=== PATIENT | female | born 1985 | race Caucasian/White ===

== ENCOUNTER → 2020-06-17 | Outpatient (CLI) | payer OTHER ==
[~2020-06-17] MED LIST: OMEP-218 PO; PYRI60TA2 PO
== END ==
LOC: M LABSMTC 12:02
PROVIDERS: ATTEND Anesthesiology
DX: Z01.812 Encounter for preprocedural laboratory examination (principal); Z11.52 Encounter for screening for COVID-19

== ENCOUNTER → 2020-08-28 | Outpatient (CLI) | payer OTHER | LOC: M LABSMTC 10:25 | PROVIDERS: ATTEND Anesthesiology | DX: Z01.812 Encounter for preprocedural laboratory examination (principal) ==

== ENCOUNTER 2020-09-02 07:52 | Observation (INO) | payer OTHER ==
[~2020-09-02] VITALS: Ht 160 cm; Wt 83.0 kg
[~2020-09-02 07:52] MED LIST changes: +HEPARIN SOD (PORCINE) 5000UNITS/ML 1ML VIAL/SYRINGE SQ ONE; +LR 1,000 ML IV ONE; +ceFAZolin SOD 1 GM in D5W MINI-BAG PLUS 50 ML IV ONE
[2020-09-02] MEDS ORDERED: MIDAZOLAM INJ 2MG/2ML VIAL (J2250 PER 1MG) As Ordered ONE (10:21)
[2020-09-02] MEDS ORDERED: propofoL 200 MG/20 ML VIAL As Ordered ONE (10:21)
[2020-09-02] MEDS ORDERED: fentaNYL 250 MCG/5 ML INJECTION (J3010) As Ordered ONE (10:21)
[2020-09-02] MEDS ORDERED: dexameTHASONE 4 MG/ML 1ML VIAL (J1100 PER 1MG) As Ordered ONE (10:21)
[2020-09-02] MEDS ORDERED: ROCURONIUM BROMIDE 50 MG/5 ML VIAL As Ordered ONE ×2 (10:21→12:51)
[2020-09-02] MEDS ORDERED: ONDANSETRON 4MG/2ML VIAL As Ordered ONE (10:21)
[2020-09-02] MEDS ORDERED: LIDOCAINE 2% 100MG/5ML SDV (FOR ANES.) As Ordered ONE (10:21)
[2020-09-02] MEDS ORDERED: BUPIVACAINE LIPOSOME/PF 1.3% 20ML VIAL (13.3MG/ML)(EXPAREL)(C9290 PER1MG) As Ordered ONE (10:53)
[2020-09-02] MEDS ORDERED: GENTAMICIN SULF 80MG/2ML VIAL As Ordered ONE (10:53)
[2020-09-02] MEDS ORDERED: ACETAMINOPHEN 1000MG 100ML IV BTL (OFIRMEV) (J0131 PER 10MG) As Ordered ONE (12:59)
[2020-09-02] MEDS ORDERED: SUGAMMADEX SODIUM 500 MG/5 ML VIAL (BRIDION) As Ordered ONE (13:01)
[2020-09-02] MEDS ORDERED: HYDROmorphone HCL 2 MG/ML 1ML VIAL (J1170) As Ordered ONE (13:01)
[2020-09-02] MEDS ORDERED: METOCLOPRAMIDE INJ 10MG/2ML VIAL (J2765 PER 1) As Ordered ONE (13:02)
[2020-09-02] MEDS ORDERED: ePHEDrine SULFATE 25 MG/5 ML(5MG/ML) SYRINGE As Ordered ONE (13:15)
[2020-09-02] MEDS ORDERED: PHENYLephrine 500MCG 5ML (100MCG/ML) SYRINGE As Ordered ONE (13:20)
--- NOTE | 2020-09-02 15:39 | POST-OPPD ---
Postoperative Procedure Note Date Of Procedure: Sep 02, 2020 PREOPERATIVE DIAGNOSIS: Bilateral breast hypertrophy POSTOPERATIVE DIAGNOSIS: same FINDINGS: large pendulous breasts PROCEDURE: bilateral breast reduction SURGEON: Dr Landry HORTICULTURAL FARMER: none SPECIMENS: right breast 613 gm, left breast 560 gm ESTIMATED BLOOD LOSS: 75 cc ANESTHESIA: general REPLACED: none DRAINS: 10 mm KEYONNA x 2 COMPLICATIONS: none POSTOPERATIVE CONDITION: stable ANA LANDRY DO Sep 02, 2020 15:39
--- NOTE | 2020-09-02 15:39 | ROOPDOC ---
[facility] Report Of Operation Report of Operation DATE OF PROCEDURE: 09/02/20 PREOPERATIVE DIAGNOSIS: Bilateral breast hypertrophy POSTOPERATIVE DIAGNOSIS: same FINDINGS: large pendulous breasts PROCEDURE: bilateral breast reduction SURGEON: Dr Landry [employer]RAFTS TEACHER: none SPECIMENS: right breast 613 gm, left breast 560 gm ESTIMATED BLOOD LOSS: 75 cc ANESTHESIA: general REPLACED: none DRAINS: 10 mm KEYONNA x 2 COMPLICATIONS: none POSTOPERATIVE CONDITION: stable DESCRIPTION OF PROCEDURE: This is a 35-year-old female who upper back and neck pain worsened by large breasts. Patient currently wears bra size 38H. She is scheduled for bilateral breast reduction. Risks, benefits, and alternatives were discussed with the patient in detail, and she is ready to proceed. The day of surgery, she was marked in the upright position and informed consent was obtained. She measures 34 cm from sternal notch to nipple on on the right and 35 cm from sternal notch to the nipple on the left , IMF at 24 cm bilaterally. Right side is schmidt and heavier than left. She was brought into the operating room and placed in the supine position. Preoperative antibiotics and 5000 units heparin subcutaneous were given. Sequential pneumatic stocking were placed on the lower calves. General anesthesia was induced. She was prepped and draped in the usual sterile fashion. We started our procedure on the right side. Her nipple areolar complex was outlined 42 mm in diameter, and the patient was marked according superior medial pedicle. We started our incision by scoring the nipple areolar complex area, and then dissection was continued until the inferior lateral portion of the breast was resected. Hemostasis was obtained using electrocautery. The pedicle was de-epithelialized using Gonzalez scissors, good perfusion to the nipple at all times. Wound was irrigated with Ancef solution. We used Exparel 6 cc for local anesthesia to infiltrate in the Pectoralis muscle as well as the breast tissue. Than, pedicle was turned superior to its new location at 24 cm from sternal notch. The mound was re-created using conforming 0 Vicryl sutures. Pillars were closed with interrupted 3-0 Monocryl sutures. The vertical limb was 8.5 cm. Excess tissue inferiorly was measured and resected, creating the horizontal scar. Nipple area complex was brought into view through the new opening and sutured in place with 3-0 and 4-0 Monocryl sutures and a 5-0 plain. A 10 mm Ja-King drain was placed through the lateral portion of the horizontal incision. Then we turned our attention to the left side. Her nipple areolar complex was outlined 42 mm in diameter, and the patient was marked according superior medial pedicle. We started our incision by scoring the nipple areolar complex area, and then dissection was continued until the inferior lateral portion of the breast was resected. Hemostasis was obtained using electrocautery. The pedicle was de- epithelialized using Gonzalez scissors, good perfusion to the nipple at all times. Wound was irrigated with Ancef solution. We used Exparel 6 cc for local anesthesia to infiltrate in the Pectoralis muscle as well as the breast tissue. Than, pedicle was turned superior to its new location at 24 cm from sternal notch. The mound was re-created using conforming 0 Vicryl sutures. Pillars were closed with interrupted 3-0 Monocryl sutures. The vertical limb was 8.5 cm. Excess tissue inferiorly was measured and resected, creating the horizontal scar. Nipple area complex was brought into view through the new opening and sutured in place with 3-0 and 4-0 Monocryl sutures and a 5-0 plain. A 10 mm Ja-King drain was placed through the lateral portion of the horizontal incision. Remaining Exparel injected in the horizontal incision. Total Exparel use 20 cc. Resected tissue sent to pathology in two specimens right and left breast tissue. Right breast 610 grams, left breast 560 grams. Dressings were applied to vertical and horizontal incision: Prinio strips and Dermabond. Nipples areolar complex: Xeroform and a bulky dressing with a surgical bra. Patient was extubated in the operating room without difficulty and was transferred to the recovery room in stable condition. . ANA LANDRY DO Sep 02, 2020 15:39
[2020-09-02] MEDS ORDERED: fentaNYL 100 MCG/2 ML INJECTION (J3010) IV PRN (15:40)
[2020-09-02] MEDS ORDERED: ONDANSETRON 4MG/2ML VIAL IV PRN ×2 (15:40)
[2020-09-02] MEDS ORDERED: KETOROLAC TROMETHAMINE 10 MG TAB PO PRN (15:40)
[2020-09-02] MEDS: LR 1,000 ML IV SCH (15:40)
[2020-09-02] MEDS ORDERED: PERCOCET 5MG/325MG TAB PO PRN ×2 (15:40)
[2020-09-02] MEDS ORDERED: ACETAMINOPHEN TAB 650MG DOSE (2X325MG) PO PRN (15:40)
[2020-09-02] MEDS ORDERED: LR 1,000 ML IV SCH (15:40)
[2020-09-02] MEDS ORDERED: METOCLOPRAMIDE INJ 10MG/2ML VIAL (J2765 PER 1) IV PRN (15:40)
[2020-09-02 17:00] VITALS: BP 109/74
[2020-09-02 17:30] VITALS: BP 115/76
[2020-09-02 18:30] VITALS: BP 114/81
[2020-09-02] MEDS: ceFAZolin SOD 1 GM in D5W MINI-BAG PLUS 50 ML IV SCH (18:41)
[2020-09-02 21:30] VITALS: BP 120/70
[2020-09-02 22:30] VITALS: BP 115/75
[2020-09-03] MEDS: LR 1,000 ML IV SCH (00:31)
[2020-09-03 02:00] VITALS: BP 105/71
[2020-09-03] MEDS: ceFAZolin SOD 1 GM in D5W MINI-BAG PLUS 50 ML IV SCH ×2 (03:35→11:45)
[2020-09-03 06:00] VITALS: BP 106/71
[2020-09-03 10:00] VITALS: BP 107/72
--- NOTE | 2020-09-03 10:07 | IPNPDOC ---
Subjective General Date Seen: Sep 03, 2020 Subject Chief Complaint/History The patient is a 35-year-old female admitted with a reason for visit of Bilateral Breast Hypertrophy. Patient status post bilateral breast reduction postop day 1. Doing well. Pain controlled. Current Medications Current Medications Current Medications Medications (Trade) Dose Ordered Sig/Shanika Route PRN Reason Start Time Stop Time Status Last Admin Dose Admin Acetaminophen (Tylenol Tab) 650 mg Q6H PRN PO MILD PAIN (PS 1-4) 09/02/20 15:40 09/02/20 22:48 Cefazolin Sodium 1 gm/Dextrose 50 ml @ 100 mls/hr Q8H IV 09/02/20 19:45 09/03/20 03:35 Fentanyl Citrate (Sublimaze) 25 mcg Q5MP PRN IV PAIN LEVEL 5-10 09/02/20 15:40 09/02/20 17:40 DC Ketorolac Tromethamine (ToRADol) 10 mg Q6HP PRN PO MODERATE PAIN (PS 5-7) 09/02/20 15:40 09/07/20 15:39 09/02/20 18:40 Lactated Ringer's 1,000 ml @ 75 mls/hr [id number] IV 09/02/20 15:40 09/03/20 00:31 Lactated Ringer's 1,000 ml @ 100 mls/hr Q10H IV 09/02/20 15:40 09/02/20 17:40 DC Metoclopramide HCl (REGLAN INJection) 10 mg Q6HP PRN IV NAUSEA OR VOMITING 09/02/20 15:40 09/02/20 17:40 DC Ondansetron HCl (ZOFRAN INJection) 4 mg Q4H PRN IV NAUSEA OR VOMITING 09/02/20 15:40 Ondansetron HCl (ZOFRAN INJection) 4 mg Q4HP PRN IV NAUSEA OR VOMITING 09/02/20 15:40 09/02/20 17:40 DC Oxycodone/ Acetaminophen (Percocet 5mg/ 325mg Tablet) 1 tab ASDIRECTED PRN PO PAIN LEVEL 1-4 09/02/20 15:40 09/02/20 17:40 DC Oxycodone/ Acetaminophen (Percocet 5mg/ 325mg Tablet) 2 tab Q4HP PRN PO PAIN LEVEL 8-10 09/02/20 15:40 Allergies Coded Allergies: No Known Allergies (Unverified , 09/02/20) Objective Physical Examination Examination GENERAL APPEARANCE:Patient seen, laying in bed, awake, alert, and oriented. Comfortable, in no acute distress. SKIN: Warm and moist. BREAST: Right and left soft, non-tender incisions intact. KEYONNA drains: 15/10 cc/24 hr. NAC: Viable, warm, symmetrical, mild post-op ecchymosis, no expanding hematoma. LUNGS: Clear to auscultation bilaterally. No wheezing appreciated. HEART: No chest wall abnormalities. Regular rate and rhythm with no murmurs appreciated. ABDOMEN: Abdomen is soft, non-tender, non-distended. EXTREMITIES: No edema identified. No calf tenderness. Vital Signs Vital Signs Date Time Temp Pulse Resp B/P (MAP) Pulse Ox O2 Delivery O2 Flow Rate FiO2 09/03/20 06:00 97.7 89 21 106/71 (83) 92 Room Air 09/02/20 21:00 2.0 I&Os I&O- Last 24 Hours up to 6 AM 09/03/20 05:59 Intake Total 2650 ml Output Total 100 ml Balance 2550 ml Impression Status post bilateral breast reduction. Stable for discharge. Dressings changed today. Instructions given to the patient for home care. Follow-up plastic surgery. Plan / VTE VTE Prophylaxis Ordered?: Yes ANA LANDRY DO Sep 03, 2020 10:07
[2020-09-03] MEDS ORDERED: PERCOCET PO (10:51)
== END 2020-09-03 12:50 | disposition home or self-care (01) ==
LOC: M SDC 07:52 → M MS5PR 15:39
PROVIDERS: ADMIT Plastic Surgery Surgery of the Hand; ATTEND Plastic Surgery Surgery of the Hand
DX: N62 Hypertrophy of breast (principal); N64.81 Ptosis of breast; K21.9 Gastro-esophageal reflux disease without esophagitis; G70.00 Myasthenia gravis without (acute) exacerbation; F17.218 Nicotine dependence, cigarettes, with other nicotine-induced disorders
CPT/HCPCS: 19318; 88305; C9290; J0131; J0690; J1100; J1170; J1580; J1644; J2250; J2370; J2405; J2765; J3010